=== PATIENT | female | born 1990 | race African-American/Black ===

== ENCOUNTER 2024-10-10 01:00 | Observation (INO) | payer OTHER, SELFPAY ==
[2024-10-09 18:33] VITALS: BP 163/103
[2024-10-09 19:02] LABS: Hematocrit 31.5 % (37.0-47.0); Hemoglobin 11.1 g/dL (12.0-16.0); Mean Corp Hgb Conc. 35.2 g/dL (33.0-37.0); Mean Corpuscular Volume 84.9 fL (81.0-99.0); Nucleated Red Blood Cells % 0 %; Platelet Count 308 10^3/uL (130-400); Red Cell Dist. Width 12.5 % (11.5-14.5)
[2024-10-09 19:19] LABS: HCG, Serum Qualitative Screen Positive
[2024-10-09 19:21] LABS: ALT (SGPT) < 10 U/L (0-35); AST (SGOT) 14 U/L (14-36); Albumin 4.2 g/dl (3.5-5.0); Alkaline Phosphatase 50 U/L (38-126); Blood Urea Nitrogen 21 mg/dl (7-17); Calcium 9.8 mg/dl (8.4-10.2); Carbon Dioxide 17 mmol/L (22-30); Chloride 109 mmol/L (98-107); Glucose 104 mg/dl (70-99); Potassium 3.8 mmol/L (3.5-5.1); Sodium 135 mmol/L (135-145); Total Protein 7.0 g/dl (6.3-8.2); eGFR > 60.00
[2024-10-09 19:33] LABS: Troponin I 0.064 ng/ml
[2024-10-09 20:38] VITALS: BP 158/99
--- NOTE | 2024-10-09 20:59 | ED.GENMED ---
History of Present Illness
General
Chief Complaint: Blood Pressure Problem
Source: patient and other (Friend)
Time Seen by Provider: 10/09/24 20:34
History of Present Illness
History of Present Illness:
This pt is a 34 yr old female with reported palpitations that lasted a few minutes today, now resolved. She checks her bp once a week, and today, she noted it was elevated at 158/98, which prompted her visit here. Last week, it was 117/85. She
discontinued her bp med (hctz) about 2 months ago b/c her bp was well controlled. She noted that she has had chest discomfort for the last week, always relived with rest, not assoc with radiation, back/jaw/neck/abd pain. No n/v/diaphoresis/sob. No
leg swelling. She notes 'acid reflux' for last 2 days. Her LMP was 6/20. She feels more tired than usual recently. Of note, pt developed an infection of skin at rigth lower abd, put on augmentin and recently finsiehd this. She now has a rash
under her L arm.
Past History
Past History
ED Past Medical History: HTN
ED Past Surgical History: None
Social History
Tobacco: Non-smoker
Alcohol: None
Drug: None
Personal:
Living: with family
Phy Exam
Physical Exam
Physical Exam:
GENERAL: Alert , in no apparent distress
EYE: pupils equal and reactive
NECK: Supple, no significant adenopathy.
ENT: o/p clr, mmm.
CARDIAC: Regular rate and rhythm .
LUNGS: Clear breath sounds bilaterally, no acute respiratory distress, no wheezes/rales/rhonchi
ABDOMEN: Soft, without focal tenderness, no r/g, no cvat
NEUROLOGICAL: Alert and oriented, no focal neuro deficits
SKIN: Warm and dry, skin intact.
MUSCULOSKELETAL: No edema, well perfused.
PSYCH: Normal and appropriate interaction.
Course
Orders/Labs/Results
Orders:
Orders
10/09/24 18:38
Electrocardiogram (*1) Urgent
Reason for Study: Chest Pain
EKG- Treatment ONCE
Test Result ONCE
10/09/24 18:55
Beta HCG Quantitative Urgent
Is this a screen?: No
C-Reactive Protein Urgent
Comment: ADD ON
Complete Blood Count/With Diff Urgent
Comprehensive Metabolic Panel Urgent
Erythrocyte Sed Rate Urgent
Comment: ADD ON
HCG, Serum Qualitative Screen Urgent
Comment: Notify provider if positive test present
TSH Urgent
Troponin I Urgent
10/09/24 20:59
Aspirin Chewable [Low Strength Aspirin] 162 mg PO NOW STA
10/09/24 22:00
Troponin I Urgent
10/09/24 22:52
EKG- Treatment ONCE
10/10/24 00:34
Admit/Transfer Patient As Directed
Co-Sign Provider:
Level of Care: Observation services
Assign to:: Telemetry
Physician / Group: Marcos
Diagnosis: Chest pain
Reason for Telemetry: Chest Pain syndromes
Date to Stop Telemetry: 10/12/24
Time to Stop Telemetry: 11:00
PRN Pain Medication Management As Directed
May give lesser potent ordered pain med per pt: Yes
preference::
Protocol:: Medication orders for pain may be administered in a
manner that supports deferring to patient preference
when the pt is:
- Requesting an ordered lesser potent pain medication.
Least to most potent pain medications are defined
as: acetaminophen < NSAID < tramadol < opioids
(morphine, oxycodone, hydromorphone).
- Requesting a lesser dose of the same medication IF
ORDERED.
- Requesting a less intrusive route of administration
if both routes are prescribed by the provider (PO <
IV).
10/10/24 00:35
Code Status As Directed
Resuscitation Status: Full Code
10/10/24 01:38
Acetaminophen [Tylenol] 650 mg PO Q4HPRN PRN
Mag Hydrox/Al Hydrox/Simeth [Maalox] 30 ml PO Q4HPRN PRN
Nitroglycerin Sublingual [Nitrostat (Sublingual)] 0.4 mg SL [id number] PRN
10/10/24 01:38
Echo 2D MMode Color/Doppler Routine
Reason for Study: chest pain
CARDIOLOGY CONSULT Routine
Consulting Provider: Rico Levine
Was physician already notified: No
Reason for consult: chest pain
Consult Notification Routine
Specialty to Notify: Cardiology
Date consulting provider notified: 10/10/24
Time consulting provider notified: 07:37
Notified:: Provider
Activity As Directed
Activity Level: As Tolerated
INT (Intravenous Needle Therapy) As Directed
Comment: maintain peripheral IV access
Intake/ Output As Directed
Frequency: Per unit guidelines
Pneumatic Compression Sleeves As Directed
Type: Knee high
Vital Signs As Directed
Frequency: q4h
Weight As Directed
Frequency: Once
Pulse Ox/spot Check [RESP] Routine
Quantity: 1
Special Instructions: on admission and then every shift if on oxygen
DX Deep Vein Thrombosis Video Routine
10/10/24 02:09
D-Dimer Routine
Troponin I Q3H
Comment: at admit & Q3H for 3 total including ED draws, obtain ECG with each level
10/10/24 05:22
Basic Metabolic Panel IN AM
Cardiovascular Evaluation IN AM
Glycohemoglobin (HgbA1c) IN AM
Troponin I Q3H
Comment: at admit & Q3H for 3 total including ED draws, obtain ECG with each level
10/10/24 Breakfast
Cholesterol Lowering
At Your Request: Full Participation
Cholesterol Lowering: Sodium, 2 Gram
10/10/24 08:00
Aspirin Chewable [Low Strength Aspirin] 81 mg PO DAILY
10/12/24 11:00
DC Protocol for Telemetry ONCE
Abnormal Lab Results
10/09/24 10/09/24
18:55 22:00
RBC 3.71 L 10^6/uL
(4.20-5.40)
Hgb 11.1 L g/dL
(12.0-16.0)
Hct 31.5 L %
(37.0-47.0)
Absolute Neuts (auto) 8.0 H 10^3/uL
(1.4-6.5)
Lymphocytes % 19.0 L %
(20.5-51.1)
Chloride 109 H mmol/L
(98-107)
Carbon Dioxide 17 L mmol/L
(22-30)
BUN 21 H mg/dl
(7-17)
Glucose 104 H mg/dl
(70-99)
Troponin I 0.064 H* ng/ml 0.071 H* ng/ml
C-Reactive Protein 18.80 H mg/L
(0.0-10.00)
10/09/24 18:55
10/09/24 18:55
Vital Signs
Initial and Last Documented VS:
Initial Vital Signs
Temp Pulse Resp BP Pulse Ox
98.5 F 72 18 163/103 100
10/09/24 18:33 10/09/24 18:33 10/09/24 18:33 10/09/24 18:33 10/09/24 18:33
Last Documented Vital Signs
Temp Pulse Resp BP Pulse Ox
98.0 F 69 16 145/91 99
10/10/24 12:42 10/10/24 12:42 10/10/24 12:42 10/10/24 12:42 10/10/24 12:42
*Pulse Oximetry
SaO2: 100
Oxygen Mode of Delivery: Room air
Patient hypoxic: no
*Critical Care Note
Total Time (30-74mins, 75-104mins- exclusive of procedures): Not Applicable
Update Note
Update Note:
Patient presents to the Emergency Department with ____palpitations, hypertension, chest discomfort
Number and Complexity of Problems Addressed at the Encounter
� Chronic conditions affecting care:
� Acute Exacerbation and/or Progression of Chronic Illness:
� Differential Diagnosis includes: But not limited to arrhythmia such as SVT, A-fib, a flutter, ACS, pericarditis, uncontrolled hypertension, etc. etc.
Amount and/or Complexity of Data to be Reviewed and Analyzed
� I performed an independent evaluation of and my interpretation is:
EKG: Read by me, normal sinus rhythm, normal rate, normal axis, no acute ischemia� Repeat ECG unchanged
CT:
Xrays:
Laboratory Studies: Troponin elevation noted
Other:
� Review of other/old records reveals:
� Clinical information was obtained by an independent historian:
� Prescriptions/Medications Considered but not given:
� Further testing considered but not performed considered cxr but deferred given pt and expected low yield
Risk of Complications and/or Morbidity or Mortality of Patient Management
� Social determinants of health affecting care:
� Discussion with other providers (PCP, Hospitalists, Consultants, etc):
� Escalation of care including admission/observation vs risk of discharge considered: 11:47 PM Long discussion with patient regarding findings here. Unclear specific etiology for troponin elevation and trend. ECG not suggestive
of acute ischemia, pericarditis. She does not offer infectious symptoms and her history. While she was recently treated for cellulitis, and she does have a small area of folliculitis at the left axilla area, this would not be consistent with a
potential pericarditis etc. No murmur to suggest endocarditis. Patient is chest pain-free at this time. Discussed with hospitalist. Recommend trend troponins, echocardiogram in a.m.
ED Attending Note
-
Portions of this chart may have been created with voice recognition software.� Occasional wrong word or��sound alike� substitutions may have occurred due to the inherent limitations of voice recognition software.
Discharge Plan
Departure
Patient Disposition: Admit
Date of Disposition: 10/09/24
Time of Disposition: 23:47
Admit to: Telemetry
Presentation/result/management discussed w/ accepting MD/DO: Hospitalist
Condition: Fair
Discharge Problem:
Chest pain
Interventions
Interventions:
*Risk Screen - Suicide Last Done: 10/09/24 18:33
*General Assessment Last Done: 10/09/24 18:33
*Neglect/Abuse Screening Last Done: 10/09/24 21:21
*ED- Fall Risk Assessment Last Done: 10/09/24 21:22
*ED COVID-19 Vaccine History Last Done: 10/09/24 21:22
*Nursing Disposition Last Done: 10/10/24 13:25
ED- Cardiac Assessment Last Done: 10/09/24 21:30
ED- Neurological Assessment Last Done: 10/09/24 21:30
ED- Pulmonary Assessment Last Done: 10/09/24 21:30
Discharge Date and Time
Discharge Date/Time: 10/10/24 13:26
[2024-10-09] MEDS: LOW STRENGTH ASPIRIN 162 MG PO (21:17)
[2024-10-09 21:27] VITALS: BP 173/91
[2024-10-09 22:00] VITALS: BP 144/96
[2024-10-09 22:18] LABS: TSH 1.58 uIU/ml (0.47-4.68)
[2024-10-09 22:34] LABS: Troponin I 0.071 ng/ml
[2024-10-09 22:40] LABS: Beta HCG Quantitative 29593.00 mIU/ml
[2024-10-09 23:37] LABS: C-Reactive Protein 18.80 mg/L (0.0-10.00)
[2024-10-10] VITALS (9 sets, daily range): BP systolic 120–156; BP diastolic 71–97
--- NOTE | 2024-10-10 00:23 | HPS.HSE ---
Family Physician
-
Family Physician: NOT KNOW UNKNOWN - PT DOES
Chief Complaint
-
Elevated blood pressure
History of Present Illness
This is a 34-year-old female with is 2 para 2 and history of hypertension after a presenting to the emergency department with elevated blood pressure today.
Patient reported that for the past 2 days she has been having some chest pressure that she thought is substernal and could relate to God. She denies radiation to the back jaws neck. She denies exertional dyspnea. She denies exertional
exacerbation of her chest pain. She denies feeling dizzy or lightheaded. She did report possibility of palpitations. She denies any nausea vomiting or diaphoresis. Patient denied any positional exacerbation for chest pain. She denies any ankle
swelling. Patient denies any recent travels. She made a blood pressure measurement today and it was elevated.
She reported that she stopped taking her antihypertensives about 2 months ago because her blood pressure normalized. She states she was on hydrochlorothiazide for approximately 4 years prior to this. Patient reports noticing some hemorrhoids and
perirectal discomfort recently. She denies any cough fevers or chills.
In the emergency department she was found to be hypertensive to 150/95, pulse in the 60s, she was satting 100% on room air. Incidentally troponin was elevated at 0.064 with a repeat of 0.071. ECG shows a normal sinus rhythm at a rate of [address] or T wave changes. CBC was unremarkable. Electrolytes BUN and creatinine were in the normal range except for a bicarb of 17. She was found to have unknown to with a elevated beta hCG. ESR is only 10 with a CRP of
18.
Medical History
Past Medical History
Past Medical History: Reports HTN
Past Surgical History: Reports
Social History
Tobacco: Non-smoker
Alcohol: None
Drug: None
Personal:
Living: With Family
Family History
Family History: Not pertinent
Allergies / Home Medications
Allergies reflects when Allergies were last updated in [facility].
Home Medications with original date entered in [facility]
Allergy/Medication List:
Allergies
Allergy/AdvReac Type Severity Reaction Status Date / Time
No Known Allergies Allergy Verified 10/09/24 18:33
Review of Systems
-
History Source: Patient
Constitutional: Reports No Symptoms
EENT: Reports No Symptoms
Respiratory: Reports No Symptoms
Cardiac: Reports Chest Pain and Other (elevated blood pressure)
Abdomen/GI: Reports No Symptoms
: Reports No Symptoms
Musculoskeletal: Reports No Symptoms
Skin: Reports No Symptoms
Neurological: Reports No Symptoms
Endocrine: Reports No Symptoms
Hematologic/Lymphatic: Reports No Symptoms
Psych: Reports No Symptoms
Physical Exam
Vital Signs
Vital Signs
Temp Pulse Resp BP Pulse Ox
98.5 F 67 19 144/96 100
10/09/24 18:33 10/10/24 00:16 10/10/24 00:16 10/09/24 22:00 10/09/24 21:00
Physical Exam
General: Well Developed, Well Nourished and No Apparent Distress
HEENT: NormoCephalic, Moist mucous membranes and Atraumatic
Respiratory: Clear
Cardiac: S1/S2 and Regular Rhythm; No Murmur or Rub
GI: Soft, Non Tender, Non Distended and Normal Bowel Sounds; No Organomegaly
Rectal: Deferred by Provider
Musculoskeletal: No Clubbing, No Cyanosis and No Edema
Skin: No Rash
Neuro: AO x 3 and Nonfocal/grossly intact
Psych: Calm
Laboratory Results
-
10/09/24 18:55
10/09/24 18:55
Laboratory Results
Total Bilirubin 0.4 mg/dl (0.2-1.3) 10/09/24 18:55
AST 14 U/L (14-36) 10/09/24 18:55
ALT < 10 U/L (0-35) 10/09/24 18:55
Alkaline Phosphatase 50 U/L (38-126) 10/09/24 18:55
Troponin I 0.071 ng/ml H* 10/09/24 22:00
Data Reviewed
-
Medical Tests (Nuc Med, Echo, EKG etc): Image Personally Visualized and interpreted
Lab Data: Discussed with Physician
Impression/Plan
-
IMPRESSION:
34-year-old G2, P2 now normal found to be again with elevated beta HCG here in the emergency department with 2 days of substernal chest discomfort, normal ECG but elevated troponin to 0.064. Chest discomfort is nonradiating. She is
currently chest pain-free. She also came to the emergency department due to elevated blood pressure at home she has stopped taking hydrochlorothiazide about 2 months ago due to blood pressure being normalized. Her BP is moderately elevated in the
emergency department.
PLAN:
Chest pain - Currently CP free. Atypical presentation with normal ECG but trop elevation to 0.064-> 0.071. Not pleuritic in presentation and inflammatory markers are low. Unlikely PE.
- admit to telemetry
- cycle enzymes and check d-dimer
- check echo in am
- aspirin 81 daily for now
- possible stress in am if enzymes stables
- cardiology consult
HTN - HTN in setting of stopping HCTZ 2 months ago. She was on 12.5.
- IR nifedipine for now
DVT PPX- SCDs for now
Code status - Full Code
[2024-10-10 02:33] LABS: D-Dimer 1.80 ug/mlFEU (0.00-0.50)
[2024-10-10 02:40] LABS: Troponin I 0.072 ng/ml
[2024-10-10 06:07] LABS: Blood Urea Nitrogen 12 mg/dl (7-17); Calcium 8.7 mg/dl (8.4-10.2); Carbon Dioxide 21 mmol/L (22-30); Chloride 110 mmol/L (98-107); Glucose 97 mg/dl (70-99); HDL Cholesterol 53 mg/dl; LDL Cholesterol, Calculated 71 mg/dl; Potassium 3.5 mmol/L (3.5-5.1); Sodium 136 mmol/L (135-145); Very Low Density Lipoprotein 21 mg/dl (0-30); eGFR > 60.00
[2024-10-10 06:19] LABS: Troponin I 0.072 ng/ml
[2024-10-10 08:01] LABS: Glycohemoglobin (HgbA1c) 5.5 % (4.0-5.6)
[2024-10-10] MEDS: LOW STRENGTH ASPIRIN 81 MG PO (08:30)
--- NOTE | 2024-10-10 08:33 | CON.CAR ---
Addendum entered and electronically signed by Asha Calvert MD 10/10/24 11:03:
I saw and examined the patient.
The EAR SPECIALIST's note was reviewed and I agree with the note.
Comment: 34-year-old female with a past medical history of hypertension, preeclampsia and gestational diabetes who presented for evaluation of elevated blood pressure, palpitations and chest pain. The symptoms have all resolved. We are asked to
see her as high-sensitivity troponin was mildly elevated at 0.07. There was no rise and fall to this test. She denies any history of prior blood clots. She has no shortness of breath. She is currently with a last menstrual period on
08/25/2024. On exam she is a regular rate and rhythm with normal S1-S2 no murmurs or gallops were appreciated lungs are clear to auscultation bilaterally. She is awake alert oriented x 3. EKG normal sinus rhythm. Troponin as noted above.
Echocardiogram was done and is normal. Overall, she is feeling better. I suspect her elevated troponin is secondary to hypertension. Review of the literature shows this is also a risk factor for developing preeclampsia. Therefore, I recommend we
start a low-dose nifedipine as blood pressures have been above our goal of less than 140/90. Additionally, I educated her that she can absolutely not take losartan�hydrochlorothiazide while . She should stop this medication as she self
DC'd month or 2 ago. Additionally, I recommended she be evaluated by [facility] as an outpatient given her history of preeclampsia/-induced hypertension. No symptoms to suggest PE, D-dimer is okay when considering her , and echo
without any right heart strain.
Okay to follow-up as an outpatient with her HISTOTECHNICIAN and as I stated above in MFM specialist.
I will sign off.
Original Note:
Consultation
Consultation Request
Date/Time Consultation Requested: 10/10/2024 01:30
Date/Time Consultation Performed: 10/10/2024 08:00
Requesting Provider: Dr. Rodríguez
Performing Provider: ELLIOTT Goldsmith for Dr. Calvert
Reason for Consultation: Chest pain
Medical History
-
Chief Complaint: Chest pain
History of Present Illness:
Carol Stein is a 34-year-old female with hypertension, preeclampsia, and gestational diabetes mellitus who presented to the emergency department with a chief complaint of elevated blood pressure. She endorsed associated palpitations and chest pain.
In the emergency department she had a positive test. LMP 08/25/2024. Cardiology was consulted for chest pain. Her chest pain is nonexertional. It does not radiate. No associated diaphoresis, nausea, shortness of breath. She does
endorse acid reflux. She has not had any chest pain overnight.
Past Medical History
Past Medical History: HTN (Preeclampsia) and Other (GDM)
Past Surgical History:
Social History
Tobacco: Non-Smoker
Alcohol: None
Drug: None
Personal:
Living: With Family
Family History
Family History: Reviewed & Not Pertinent (Denies premature CAD and SCD.)
Allergies / Home Medications
Allergy/AdvReac Type Severity Reaction Status Date / Time
No Known Allergies Allergy Verified 10/09/24 18:33
�Medication �Instructions �Recorded �Confirmed �Type
No Meds [No Current Medications] 10/10/24 10/10/24 History
Review of Systems
-
History Source: Patient
All other systems: Negative unless noted
Constitutional: Fatigue
EENT: No Symptoms
Respiratory: No Symptoms
Cardiac: No Symptoms
Abdomen/GI: No Symptoms
: No Symptoms
Musculoskeletal: No Symptoms
Skin: No Symptoms
Neurological: No Symptoms
Endocrine: No Symptoms
Hematologic/Lymphatic: No Symptoms
Physical Exam
Vital Signs
Temp Pulse Resp BP Pulse Ox
98.5 F 63 25 121/78 100
10/09/24 18:33 10/10/24 06:00 10/10/24 06:00 10/10/24 06:00 10/09/24 21:00
Lab Results
10/09/24 18:55
10/10/24 05:22
Troponin I 0.072 ng/ml H* 10/10/24 05:22
Physical Exam
General: Well Developed, Well Nourished, No Apparent Distress and Comfortable
HEENT: Normocephalic, Anicteric and Moist Mucous Membranes
Respiratory: Clear and Non Labored Respirations
Cardiac: S1/S2 and Regular Rhythm; Negative Peripheral Edema
Breast: Deferred by me
GI: Soft, Non Tender, Non Distended and Normal Bowel Sounds
Rectal: Deferred by Provider
Genito-urinary: No Costovertebral Tender
Musculoskeletal: No Clubbing, No Cyanosis and No Edema
Skin: Warm and Dry
Neuro: AO x 3
Hematologic/Lymphatic: No Lymphadenopathy
Psych: Calm
Impression / Plan
-
I/P: 34F with hypertension, preeclampsia, and gestational diabetes mellitus who presented to the emergency department with a chief complaint of elevated blood pressure. She endorsed associated palpitations and chest pain. In the emergency
department she had a positive test. LMP 08/25/2024. Cardiology was consulted for chest pain.
-LMP 08/25/2024
-First she developed hypertension at approximately 31 weeks, also had GDM
-Second she delivered via at approximately 37 weeks due to elevated blood pressure
-On ASA
Chest pain
-None further
-D-dimer 1.80, CRP 18.80
-Echocardiogram
Abnormal troponin, non ischemic myocardial injury
-Peak 0.072, they remain flat
-Abnormal troponin may indicate underlying cardiac issues or be associated with hypertensive disorders of
-EKG stable
Hypertension with PIH
-She self discontinued her HCTZ
-Given her would recommend nifedipine 30mg
Data Reviewed
-
EKG: Report Reviewed by me
Labs: Labs Reviewed by me
Old Records: Reviewed
--- NOTE | 2024-10-10 10:55 | CM ---
CM reviewed chart and met with pt bedside in ED. Pt lives with her and 2 children in 2 story home. 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
Independent in ADLs, personal care and ambulation at baseline. No DME.
Pt states she does have PCP but cannot remember the name, unsure of local pharmacy as she is staying with friends.
Anticipate discharge home, no needs, pending ongoing medical evaluation.
--- NOTE | 2024-10-10 13:00 | W.PN.UPDATE ---
Update Note
Progress Note Update
Hospitalist H&P from 0023 this morning. I reviewed the patient's chart and personally evaluated her at the bedside in the ED.
34-year-old female with hypertension, preeclampsia, gestational diabetes that presented with chest discomfort and elevated blood pressure. Initial beta-hCG testing showed likely near 6 weeks gestation. Initial troponin mildly
elevated near 0.07, ECG without any acute ischemic findings. Chest pain symptomatically resolved shortly after arrival. TTE performed today without signs of WMA or systolic dysfunction, no valve abnormalities. AFVSS throughout hospital course.
Denies any complaints as of this morning
Exam benign. Family at bedside help with interpretation
Type II NSTEMI secondary to hypertension. Risks for preeclampsia with elevated troponin, history of preeclampsia. ECG nonischemic, troponin trend flat, TTE normal. Symptomatically resolved. Started on nifedipine, will continue at time of
discharge. Recommend close follow-up with MFM per cardiology recommendations. Educated to avoid medications such as losartan and HCTZ (avoid all ACEi/ARB/thiazides)
. Likely near 6 weeks gestation with beta-hCG >20,000. Will provide consult for multimedia designer and MFM. Start vitamin daily. 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
missionary work.
Discharge home today with referrals for OB/gynecology and MFM.
--- NOTE | 2024-10-11 15:19 | W.DCSUMMARY ---
Discharge Summary
Discharge Data
Date of Admission: 10/10/24
Date of Discharge: 10/10/24
Total time spent discharging patient (in min): 33
-
Pending Results: No
Hospital Course
Discharging Physician : Berhane Coronado DO
Disposition : Home
Principal Discharge diagnosis :
Hypertensive urgency
Type II NSTEMI
(near 6-week gestation)
History of preeclampsia
Chronic Discharge diagnosis :
Preeclampsia
Hospital Course :
34-year-old female that presented to the hospital with a complaint of chest discomfort. Upon arrival had troponin elevated at 0.064 with subsequent trend at 0.071�0.072�0.072. Was noted to be initially hypertensive with BP 163/103 mmHg. ECG x 3
without ischemic changes, chest pain resolved shortly after arrival to the ED. Underwent echocardiogram that was unremarkable, did not show any wall motion abnormalities, systolic dysfunction, abnormal valvular function. Was evaluated in the
hospital by cardiology who recommended against coronary CTA (contraindicated from ), stress testing, or invasive coronary angiography. Suspect that symptoms were related to chest pain and type II demand ischemic event in the context.
Cardiology recommended outpatient follow-up with maternal medicine/ medicine as hypertensive events with type II NSTEMI as risk factor for preeclampsia. Also recommended routine OB/gynecology follow-up. Was discharged with
nifedipine 30 mg daily (provided strict directions to avoid HCTZ, GLORIA inhibitor's, ARB's) and vitamin.
Consultants:
Cardiology: Gloria Calvert MD
Important imaging findings :
Transthoracic echocardiogram (10/10/2024)
SUMMARY: Normal echocardiogram.
Procedure findings : N/A
Follow-up :
-Follow-up with family doctor within 1 week of discharge to reassess blood pressure
-Follow-up with OB/gynecology referral within 1 to 2 weeks of discharge
-Follow-up with maternal medicine consult within 1 to 2 weeks of discharge
Discharge Plan
-
Patient Disposition: Home (Routine Discharge)
Discharge Diagnosis/Procedures: Chest pain
Hypertensive urgency
Condition: Good
Diet: No added salt
Activity: As tolerated
Driving Restrictions: As prior to admission
Bathing Restrictions: None
Blood Work: None
Others Tests: None
Activity Restrictions/Additional Instructions:
Referrals provided below for galvanizer and maternal- medicine. Please contact their office to schedule appointments
Referral provided for the family medicine residency clinic associated with the hospital. Contact office to schedule an appointment within 1 week of discharge
Referrals:
[facility] [Outside]
Howard Yuan MD [Consulting Staff, Gynecology]
UNKNOWN - PT DOES,NOT KNOW [Family Provider]
Carolyn Cuevas MD [Active, Gynecology]
Additional Discharge Medication Instructions: Start nifedipine 30 mg daily for your blood pressure
Start vitamin daily
1 month supply of medications was provided. Please follow-up with family medicine residency clinic within 1 week of discharge from hospital to reassess your blood pressure. They may make further adjustments to the dose. They can then send you a
5-month supply prior to leaving the country.
Prescriptions:
New
nifedipine 30 mg tablet extended release
30 mg PO DAILY 30 Days Qty: 30 0RF
Vitamin 27 mg iron- 800 mcg tablet
1 tab PO DAILY 30 Days Qty: 30 0RF
Discharge Orders:
Discharge Patient (As Directed); Ordered 10/10/24
Ordered By: Berhane Coronado
Discharge Date and Time
Discharge Date/Time: 10/10/24 13:25
Print Language: MAURITIAN
== END 2024-10-10 13:25 | disposition home or self-care (01) ==
LOC: ED 01:00
PROVIDERS: Student in an Organized Health Care Education/Training Program; ADMITTING PHYSICIAN Internal Medicine; ATTENDING PHYSICIAN Internal Medicine; EMERGENCY PHYSICIAN Emergency Medicine; OTHER PHYSICIAN Internal Medicine Cardiovascular Disease
DX: O10.911 Unspecified pre-existing hypertension complicating pregnancy, first trimester (principal); I16.0 Hypertensive urgency; Z3A.01 Less than 8 weeks gestation of pregnancy; R00.2 Palpitations; K21.9 Gastro-esophageal reflux disease without esophagitis; R21 Rash and other nonspecific skin eruption; K64.9 Unspecified hemorrhoids; R07.9 Chest pain, unspecified; I21.A1 Myocardial infarction type 2; Z87.59 Personal history of other complications of pregnancy, childbirth and the puerperium; Z87.19 Personal history of other diseases of the digestive system; Z79.899 Other long term (current) drug therapy
CPT/HCPCS: 80048; 80053; 80061; 83036; 84443; 84484; 84702; 84703; 85025; 85379; 85652; 86140; 93005; 93306; G0378